=== PATIENT | female | born 1970 | race African-American/Black ===

== ENCOUNTER 2017-09-14 19:29 | Emergency (ER) | payer BC, OTHER ==
[~2017-09-14] VITALS: Ht 175.3 cm; Wt 68.0 kg
[2017-09-14 23:58] VITALS: BP 128/74
== END 2017-09-14 23:59 | disposition home or self-care (01) ==
LOC: ER 21:12
DX: M54.5 Low back pain (principal); M25.552 Pain in left hip; V43.52XA Car driver injured in collision with other type car in traffic accident, initial encounter; Y93.89 Activity, other specified; Y99.8 Other external cause status; Y92.410 Unspecified street and highway as the place of occurrence of the external cause
CPT/HCPCS: 73502; 81025; 99284